=== PATIENT | female | born 1985 | race Two or more races ===

== ENCOUNTER 2017-07-09 21:08 | Emergency (ER) | payer OTHER ==
[2017-07-09] MEDS ORDERED: ACETAMINOPHEN TAB 500 MG TAB PO STA (21:34)
[2017-07-09] MEDS ORDERED: METOCLOPRAMIDE 5 MG/ML 2 ML VIAL IVP STA (21:34)
[2017-07-09] MEDS ORDERED: SODIUM CHLORIDE 0.9% 1,000 ML IV STA ×2 (21:34→23:22)
--- NOTE | 2017-07-09 21:37 | ED ---
General Adult HPI - General Chief complaint: Nausea/Vomiting/Diarrhea Stated complaint: Vomiting Time Seen by Provider: 07/09/17 21:27 Source: patient, RN notes reviewed Mode of arrival: ambulatory Limitations: no limitations - History of Present Illness Initial comments: 32-year-old female who is currently 14 weeks presents to the emergency department with a chief complaint of nausea vomiting and diarrhea. Patient has had this for the past day or so. She states that she noticed a fever when she arrived. She states there is been no blood in the vomit or diarrhea. Her daughter was sick with similar like symptoms earlier this week. There is been no cough cold symptoms. She was concerned due to the continued vomiting and diarrhea so she thought that she should be evaluated.Patient denies any recent shortness of breath, chest pain, back pain, abdominal pain, numbness or tingling , dysuria or hematuria, constipation, headaches or visual changes, or any other current symptoms. - Related Data Home Medications Medication Instructions Recorded Confirmed Calcium Carbonate [Calcium] 600 mg PO DAILY 12/02/15 01/26/16 Ferrous Sulfate [Feosol] 325 mg PO DAILY 12/02/15 01/26/16 Yty-Iqef-Xzmzc Acid 1 cap PO DAILY 12/02/15 01/26/16 [-U Capsule] Previous Rx's Medication Instructions Recorded Acetaminophen-Codeine 300-30mg 2 each PO Q4HR PRN #20 tab 02/01/16 [Tylenol w/codeine #3] Cephalexin [Keflex] 500 mg PO Q6HR #40 cap 07/09/17 Allergies Allergy/AdvReac Type Severity Reaction Status Date / Time No Known Allergies Allergy Verified 07/09/17 21:16 Review of Systems ROS Statement: Those systems with pertinent positive or pertinent negative responses have been documented in the HPI. ROS Other: All systems not noted in ROS Statement are negative. Past Medical History Past Medical History: No Reported History History of Any Multi-Drug Resistant Organisms: None Reported Past Surgical History: Cholecystectomy Past Anesthesia/Blood Transfusion Reactions: No Reported Reaction Past Psychological History: Anxiety Smoking Status: Never smoker Past Alcohol Use History: None Reported Past Drug Use History: None Reported - Past Family History Mother Family Medical History: No Reported History General Exam - General Exam Comments Initial Comments: General: The patient is awake and alert, in no distress, and does not appear acutely ill. Eye: Pupils are equal, round and reactive to light, extra-ocular movements are intact; there is normal conjunctiva bilaterally. No signs of icterus. Ears, nose, mouth and throat: There are moist mucous membranes. Neck: The neck is supple, there is no tenderness. Cardiovascular: There is a regular rate and rhythm. No murmur, rub or gallop is appreciated. Respiratory: Lungs are clear to auscultation, respirations are non-labored, breath sounds are equal. No wheezes, stridor, rales, or rhonchi. Gastrointestinal: Soft, non-distended, non-tender abdomen without masses or organomegaly noted. There is no rebound or guarding present. No CVA tenderness. Bowel sounds are unremarkable. Back: There is no tenderness to palpation in the midline. There is no obvious deformity. No rashes noted. Musculoskeletal: Normal ROM, no tenderness, There is no pedal edema. There is no calf tenderness or swelling. Sensation intact. Pulses equal bilaterally 2+. Neurological: CN II-XII intact, There are no obvious motor or sensory deficits. Coordination appears grossly intact. Speech is normal. Skin: Skin is warm and dry and no rashes or lesions are noted. Psychiatric: Cooperative, appropriate mood & affect, normal judgment. Limitations: no limitations Course Vital Signs 07/09/17 07/09/17 21:13 23:22 Temperature 100 F H 98.8 F Pulse Rate 119 H 88 Respiratory 18 18 Rate Blood Pressure 136/75 111/64 O2 Sat by Pulse 97 100 Oximetry Medical Decision Making - Medical Decision Making 32-year-old female presents for nausea vomiting and diarrhea. This time urine is evaluated that show suspicion for possible UTI. We will start her on antibiotics for home. We discussed patient also has some suspicion for a viral enteritis. The patient's daughter had similar symptoms recently as well. We did thoroughly hydrate the patient with 2 L of fluid and give her IV Rocephin for her UTI. We discussed we will start her on Keflex for home for the UTI as well. We did discuss close follow-up with her doctor we did discuss return parameters and stated that she understood and she is this plan. All questions have been answered. She will be discharged. - Lab Data Result diagrams: 07/09/17 22:00 07/09/17 22:00 Lab Results 07/09/17 07/09/17 07/09/17 Range/Units 21:45 22:00 22:00 WBC 11.9 H (3.8-10.6) k/uL RBC 5.10 (3.80-5.40) m/uL Hgb 12.3 (11.4-16.0) gm/dL Hct 38.9 (34.0-46.0) % MCV 76.2 L (80.0-100.0) fL MCH 24.1 L (25.0-35.0) pg MCHC 31.7 (31.0-37.0) g/dL RDW 17.0 H (11.5-15.5) % Plt Count 288 (150-450) k/uL Neutrophils % 85 % Lymphocytes % 9 % Monocytes % 4 % Eosinophils % 1 % Basophils % 0 % Neutrophils # 10.1 H (1.3-7.7) k/uL Lymphocytes # 1.0 (1.0-4.8) k/uL Monocytes # 0.5 (0-1.0) k/uL Eosinophils # 0.1 (0-0.7) k/uL Basophils # 0.0 (0-0.2) k/uL Hypochromasia Slight Anisocytosis Slight Microcytosis Slight Sodium 139 (137-145) mmol/L Potassium 3.8 (3.5-5.1) mmol/L Chloride 105 (98-107) mmol/L Carbon Dioxide 17 L (22-30) mmol/L Anion Gap 17 mmol/L BUN 16 (7-17) mg/dL Creatinine 0.70 (0.52-1.04) mg/dL Est GFR (MDRD) Af Amer >60 (>60 ml/min/1.73 sqM) Est GFR (MDRD) Non-Af >60 (>60 ml/min/1.73 sqM) Glucose 134 H (74-99) mg/dL Calcium 10.1 (8.4-10.2) mg/dL Total Bilirubin 0.6 (0.2-1.3) mg/dL AST 27 (14-36) U/L ALT 25 (9-52) U/L Alkaline Phosphatase 100 (38-126) U/L Total Protein 7.8 (6.3-8.2) g/dL Albumin 4.4 (3.5-5.0) g/dL Urine Color Urine Appearance (Clear) Urine pH (5.0-8.0) Ur Specific [place] (1.001-1.035) Urine Protein (Negative) Urine Glucose (UA) (Negative) Urine Ketones (Negative) Urine Blood (Negative) Urine Nitrite (Negative) Urine Bilirubin (Negative) Urine Urobilinogen (<2.0) mg/dL Ur Leukocyte Esterase (Negative) Urine RBC (0-5) /hpf Urine WBC (0-5) /hpf Ur Squamous Epith Cells (0-4) /hpf Urine Bacteria (None) /hpf Hyaline Casts (0-2) /lpf Urine Mucus (None) /hpf Influenza Type A RNA Not Detected (Not Detectd) Influenza Type B (PCR) Not Detected (Not Detectd) 07/09/17 Range/Units 22:47 WBC (3.8-10.6) k/uL RBC (3.80-5.40) m/uL Hgb (11.4-16.0) gm/dL Hct (34.0-46.0) % MCV (80.0-100.0) fL MCH (25.0-35.0) pg MCHC (31.0-37.0) g/dL RDW (11.5-15.5) % Plt Count (150-450) k/uL Neutrophils % % Lymphocytes % % Monocytes % % Eosinophils % % Basophils % % Neutrophils # (1.3-7.7) k/uL Lymphocytes # (1.0-4.8) k/uL Monocytes # (0-1.0) k/uL Eosinophils # (0-0.7) k/uL Basophils # (0-0.2) k/uL Hypochromasia Anisocytosis Microcytosis Sodium (137-145) mmol/L Potassium (3.5-5.1) mmol/L Chloride (98-107) mmol/L Carbon Dioxide (22-30) mmol/L Anion Gap mmol/L BUN (7-17) mg/dL Creatinine (0.52-1.04) mg/dL Est GFR (MDRD) Af Amer (>60 ml/min/1.73 sqM) Est GFR (MDRD) Non-Af (>60 ml/min/1.73 sqM) Glucose (74-99) mg/dL Calcium (8.4-10.2) mg/dL Total Bilirubin (0.2-1.3) mg/dL AST (14-36) U/L ALT (9-52) U/L Alkaline Phosphatase (38-126) U/L Total Protein (6.3-8.2) g/dL Albumin (3.5-5.0) g/dL Urine Color Dark Brown Urine Appearance Turbid H (Clear) Urine pH 6.0 (5.0-8.0) Ur Specific [place] 1.035 (1.001-1.035) Urine Protein 3+ H (Negative) Urine Glucose (UA) Trace H (Negative) Urine Ketones 1+ H (Negative) Urine Blood Negative (Negative) Urine Nitrite Negative (Negative) Urine Bilirubin 1+ H (Negative) Urine Urobilinogen 4.0 (<2.0) mg/dL Ur Leukocyte Esterase Trace H (Negative) Urine RBC 2 (0-5) /hpf Urine WBC 24 H (0-5) /hpf Ur Squamous Epith Cells 28 H (0-4) /hpf Urine Bacteria Occasional H (None) /hpf Hyaline Casts 474 H (0-2) /lpf Urine Mucus Many H (None) /hpf Influenza Type A RNA (Not Detectd) Influenza Type B (PCR) (Not Detectd) Disposition Clinical Impression: Nausea & vomiting, Diarrhea, UTI (urinary tract infection), Dehydration Disposition: HOME SELF-CARE Condition: Stable Instructions: Acute Nausea and Vomiting (ED), Urinary Tract Infection in Women (ED) Additional Instructions: Please use medication as discussed. Please follow up with family doctor if symptoms have not improved over the next two days. Please return to the emergency room if your symptoms increase or worsen or for any other concerns. Prescriptions: Cephalexin [Keflex] 500 mg PO Q6HR #40 cap Referrals: Codi Jackson MD [Primary Care Provider] - 1-2 days
[2017-07-09 22:07] LABS: Anisocytosis Slight; Basophils % (A) 0 %; Eosinophils # (A) 0.1 k/uL (0-0.7); Eosinophils % (A) 1 %; HCT 38.9 % (34.0-46.0); HGB 12.3 gm/dL (11.4-16.0); Hypochromasia Slight; Lymphocytes % (A) 9 %; MCH 24.1 pg (25.0-35.0); MCHC 31.7 g/dL (31.0-37.0); MCV 76.2 fL (80.0-100.0); Mean Platelet Volume 7.4; Microcytosis Slight; Monocytes # (A) 0.5 k/uL (0-1.0); Monocytes % (A) 4 %; Neutrophils # (A) 10.1 k/uL (1.3-7.7); Neutrophils % (A) 85 %; Platelet Count 288 k/uL (150-450); WBC 11.9 k/uL (3.8-10.6)
[2017-07-09 22:18] LABS: ALT 25 U/L (9-52); AST 27 U/L (14-36); Albumin 4.4 g/dL (3.5-5.0); Alkaline Phosphatase 100 U/L (38-126); Anion Gap 17 mmol/L; Blood Urea Nitrogen 16 mg/dL (7-17); Calcium 10.1 mg/dL (8.4-10.2); Carbon Dioxide 17 mmol/L (22-30); Chloride 105 mmol/L (98-107); Glucose 134 mg/dL (74-99); Potassium 3.8 mmol/L (3.5-5.1); Sodium 139 mmol/L (137-145); Total Bilirubin 0.6 mg/dL (0.2-1.3); Total Protein 7.8 g/dL (6.3-8.2)
[2017-07-09 23:14] LABS: Appearance,Urine Turbid (Clear); Bacteria,Urine Occasional /hpf; Bilirubin,Urine 1+ (Negative); Blood,Urine Negative (Negative); Color,Urine Dark Brown; Glucose,Urine (UA) Trace (Negative); Hyaline Casts,Urine 474 /lpf (0-2); Ketones,Urine 1+ (Negative); Leukocyte Esterase,Urine Trace (Negative); Mucus,Urine Many /hpf; Nitrite,Urine Negative (Negative); Protein,Urine 3+ (Negative); RBC,Urine 2 /hpf (0-5); Specific Gravity,Urine 1.035 (1.001-1.035); Squamous Epithelial Cell,Urine 28 /hpf (0-4); WBC,Urine 24 /hpf (0-5)
[2017-07-09] MEDS ORDERED: cefTRIAXone IN SWFI 1,000 MG/10 ML SYRINGE IVP STA (23:29)
[2017-07-10 00:11] VITALS: BP 107/64
[2017-07-10 01:14] VITALS: PULSE 98; RESP 18; TEMP 98.1
== END 2017-07-10 01:14 | disposition home or self-care (01) ==
LOC: EC 21:08
DX: O23.41 Unspecified infection of urinary tract in pregnancy, first trimester (principal); O21.9 Vomiting of pregnancy, unspecified; O99.89 Other specified diseases and conditions complicating pregnancy, childbirth and the puerperium; E86.0 Dehydration; O26.891 Other specified pregnancy related conditions, first trimester; R19.7 Diarrhea, unspecified; Z79.899 Other long term (current) drug therapy; Z3A.14 14 weeks gestation of pregnancy
CPT/HCPCS: 99284 ×2; 96374 ×2; 96375 ×2; 96361 ×4; 36415 ×2; 80053; 85025; 81001; 87040; 87086; 87502; J2765; J0696

== ENCOUNTER 2017-12-28 06:03 | Inpatient (IN) | payer OTHER ==
[2017-12-28 06:19] LABS: Glucose,Whole Blood 103 mg/dL (75-99)
[2017-12-28] MEDS ORDERED: LIDOCAINE 1% (PF) 10 MG/ML (30 ML SDV) SQ PRN (06:19)
[2017-12-28] MEDS ORDERED: OXYTOCIN 10 UNIT/ML 1 ML VIAL IM PRN (06:19)
[2017-12-28] MEDS ORDERED: METHYLERGONOVINE 0.2 MG/ML 1 ML AMP IM PRN (06:19)
[2017-12-28] MEDS ORDERED: TERBUTALINE 1 MG/ML VIAL SQ PRN (06:19)
[2017-12-28] MEDS ORDERED: CARBOPROST TROMETHAMINE 250 MCG/ML 1 ML AMP IM PRN (06:19)
[2017-12-28 06:26] VITALS: BMI 36.1
[2017-12-28] MEDS: LACTATED RINGERS 1,000 ML IV SCH ×3 (06:26→16:27)
[2017-12-28 06:32] LABS: Anisocytosis Slight; Basophils # (A) 0.1 k/uL (0-0.2); Basophils % (A) 0 %; Eosinophils # (A) 0.1 k/uL (0-0.7); Eosinophils % (A) 1 %; HCT 28.7 % (34.0-46.0); HGB 8.7 gm/dL (11.4-16.0); Hypochromasia Marked; Lymphocytes # (A) 2.2 k/uL (1.0-4.8); Lymphocytes % (A) 16 %; MCH 22.5 pg (25.0-35.0); MCHC 30.5 g/dL (31.0-37.0); MCV 73.9 fL (80.0-100.0); Mean Platelet Volume 7.1; Microcytosis Slight; Monocytes # (A) 0.7 k/uL (0-1.0); Monocytes % (A) 5 %; Neutrophils # (A) 10.6 k/uL (1.3-7.7); Neutrophils % (A) 76 %; Platelet Count 319 k/uL (150-450); Poikilocytosis Slight; RBC 3.88 m/uL (3.80-5.40); RDW 16.4 % (11.5-15.5)
[2017-12-28] MEDS: OXYTOCIN 20 UNITS/1000 ML NS 1,000 ML IV SCH ×2 (07:13→17:20)
[2017-12-28] MEDS ORDERED: BUTORPHANOL 1 MG/ML 1 ML VIAL IV PRN (08:33)
--- NOTE | 2017-12-28 08:33 | P.HPOB ---
History of Present Illness H&P Date: 12/28/17 Chief Complaint: IUP at 39-0/7 weeks This is a 32-year-old 2 para 1 at 39-0/7 weeks with an estimated due date of 725. Patient presents for elective induction of labor. Patient states she has been having irregular contractions for many weeks now but denies any change in discomfort level. She denies vaginal bleeding loss of fluid and notes good movement. On blood work showed a blood type of O+, rubella immune, hepatitis B surface antigen negative, HIV negative, RPR nonreactive, GBS negative. Review of Systems Constitutional: Reports fatigue, Denies chills, Denies fever Ears, nose, mouth and throat: Denies headache Cardiovascular: Reports edema Respiratory: Denies dyspnea Gastrointestinal: Denies constipation, Denies diarrhea Genitourinary: Reports Past Medical History Past Medical History: No Reported History History of Any Multi-Drug Resistant Organisms: None Reported Past Surgical History: Appendectomy, Cholecystectomy Past Anesthesia/Blood Transfusion Reactions: No Reported Reaction Past Psychological History: No Psychological Hx Reported Smoking Status: Never smoker Past Alcohol Use History: None Reported Past Drug Use History: None Reported - Past Family History Mother Family Medical History: No Reported History Medications and Allergies Home Medications Medication Instructions Recorded Confirmed Type Iyg-Cumn-Lkwcw Acid 1 cap PO DAILY 12/02/15 12/28/17 History [-U Capsule] Allergies Allergy/AdvReac Type Severity Reaction Status Date / Time No Known Allergies Allergy Verified 12/28/17 06:18 Exam Osteopathic Statement: *. No significant issues noted on an osteopathic structural exam other than those noted in the History and Physical/Consult. Vital Signs Temp Pulse Resp BP Pulse Ox 12/28/17 06:09 97.1 F L 103 H 18 125/71 97 Intake and Output 12/27/17 12/28/17 12/28/17 22:59 06:59 14:59 Other: Weight 83.915 kg - OBG Physical Exam Abdomen: Gravid Cervix: 3-4/60/-2 amniotomy performed with clear fluid obtained Uterus: enlarged Results Result Diagrams: 12/28/17 06:10 Abnormal Lab Results - Last 24 Hours (Table) 12/28/17 12/28/17 Range/Units 06:10 06:13 WBC 14.0 H (3.8-10.6) k/uL Hgb 8.7 L (11.4-16.0) gm/dL Hct 28.7 L (34.0-46.0) % MCV 73.9 L (80.0-100.0) fL MCH 22.5 L (25.0-35.0) pg MCHC 30.5 L (31.0-37.0) g/dL RDW 16.4 H (11.5-15.5) % Neutrophils # 10.6 H (1.3-7.7) k/uL POC Glucose (mg/dL) 103 H (75-99) mg/dL Assessment and Plan (1) Term Current Visit: Yes Status: Acute Code(s): Z34.80 - ENCOUNTER FOR SUPRVSN OF NORMAL , UNSP TRIMESTER SNOMED Code(s): 08348997 Plan: We'll plan Pitocin induction of labor, patient does desire epidural when a appropriate, anticipate spontaneous vaginal delivery later today.
[2017-12-28] MEDS: PRENATAL VIT-IRON-FOLIC ACID 1 EACH CAP PO SCH (11:05)
[2017-12-28] MEDS ORDERED: ROPIVACAINE 100 MG, fentaNYL (PF) 200 MCG in SODIUM CHLORIDE 0.9% 76 ML EPIDURAL ONE (12:44)
[2017-12-28] MEDS ORDERED: ZOLPIDEM 5 MG TAB PO PRN (14:33)
[2017-12-28] MEDS ORDERED: WITCH HAZEL 1 EACH MED..PAD TOPICAL PRN (14:33)
[2017-12-28] MEDS ORDERED: ACETAMINOPHEN TAB 325 MG TAB PO PRN (14:33)
[2017-12-28] MEDS ORDERED: HYDROCORTISONE 2.5% RECTAL CREAM 30 GM TUBE RECTAL PRN (14:33)
[2017-12-28] MEDS ORDERED: diphenhydrAMINE 50 MG/ML 1 ML VIAL IVP PRN ×2 (14:33)
[2017-12-28] MEDS ORDERED: SIMETHICONE 80 MG CHEWABLE PO PRN (14:33)
[2017-12-28] MEDS ORDERED: LANOLIN CREAM 5 GM TUBE TOPICAL PRN (14:33)
[2017-12-28] MEDS ORDERED: diphenhydrAMINE 25 MG CAP PO PRN (14:33)
[2017-12-28] MEDS ORDERED: diphenhydrAMINE 50 MG CAP PO PRN (14:33)
[2017-12-28] MEDS ORDERED: IBUPROFEN 600 MG TAB PO PRN (14:33)
[2017-12-28] MEDS ORDERED: BENZOCAINE/MENTHOL SPRAY 1 GM/SPRAY AEROSOL TOPICAL PRN (14:33)
--- NOTE | 2017-12-28 14:33 | P.PROBDLV ---
Vaginal Delivery Note - . Vaginal Delivery Note: This is a very pleasant 32-year-old 2 para 1 at 39-0/7 weeks that presented to labor and delivery for elective induction of labor. Pitocin induction was begun amniotomy was performed yielding clear fluid. Patient progressed through labor eventually getting epidural. She progressed to complete began pushing and had a normal spontaneous vaginal delivery of a viable female at 1415, weight of 6 lbs. 9 oz., Apgars of 9 and 9 at one and 5 minutes respectively. was in a left occiput anterior presentation with a loose nuchal cord that was reduced on the perineum. Afterwards the cord was doubly clamped and cut and the placenta was delivered spontaneously intact. The vaginal vault was then inspected in a first-degree vaginal laceration was noted along with a periurethral tear. Both were bleeding therefore repaired in the usual fashion with 3-0 repeat. Afterwards the vaginal vault was once again inspected and hemostasis was appreciated. Estimated blood loss approximately 300 mL next Patient and infant tolerated delivery well and are resting comfortably
[2017-12-28] MEDS ORDERED: OXYTOCIN 20 UNITS/1000 ML NS 1,000 ML IV SCH (14:45)
[2017-12-28] MEDS: SENNOSIDES-DOCUSATE SODIUM 1 EACH TAB PO SCH (21:27)
[2017-12-29 01:01] VITALS: RESP 16
--- NOTE | 2017-12-29 08:33 | P.DS ---
Providers Date of admission: 12/28/17 06:03 Expected date of discharge: 12/29/17 Attending physician: Yue Pruitt Primary care physician: Stated None - Discharge Diagnosis(es) (1) Term Current Visit: Yes Status: Acute (2) Normal spontaneous vaginal delivery Current Visit: No Status: Acute Hospital Course: This is a very pleasant 32-year-old 2 para 1001 at 39-0/7 weeks that presented yesterday 718 for elective induction of labor. Pitocin induction was begun amniotomy was performed eventually epidural was placed by anesthesia patient progressed to complete and had a normal spontaneous vaginal delivery of a viable female infant at 1415, weight of 6 lbs. 9 oz., Apgars of 9 and 9 at one and 5 minutes respectively. Patient is doing well . She is ambulating and voiding without difficulty. She is tolerating a regular diet without nausea or vomiting. She states her lochia is moderate. She is breast- feeding with some difficulty. She does wish to be discharged home on this day #1. Plan - Discharge Summary New Discharge Prescriptions: No Action Jhc-Kwow-Jnhbb Acid [-U Capsule] 1 cap PO DAILY Discharge Medication List Mbx-Lglw-Lksul Acid [-U Capsule] 1 cap PO DAILY 12/02/15 [ History] Follow up Appointment(s)/Referral(s): Yue Pruitt DO [Doctor of Osteopathic Medicine] - 4 Weeks Patient Instructions/Handouts: Vaginal Delivery (DC), Vaginal Delivery (GEN) Care Plan Goals (MU): No tub baths or intercourse until 6 weeks Discharge Disposition: HOME SELF-CARE
[2017-12-29] MEDS: PRENATAL VIT-IRON-FOLIC ACID 1 EACH CAP PO SCH (10:04)
[2017-12-29] MEDS: SENNOSIDES-DOCUSATE SODIUM 1 EACH TAB PO SCH (10:04)
[2017-12-29 17:28] VITALS: BP 110/62; PULSE 84; TEMP 98
== END 2017-12-29 17:00 | disposition home or self-care (01) | DRG 775 ==
LOC: 4FBP 06:03
PROVIDERS: ADMIT Obstetrics & Gynecology Obstetrics; ATTEND Obstetrics & Gynecology Obstetrics
PROC: 10E0XZZ Delivery of Products of Conception, External Approach (ICD-10-PCS; principal; 2017-12-28)
PROC: 0UQMXZZ Repair Vulva, External Approach (ICD-10-PCS; 2017-12-28)
PROC: 0HQ9XZZ Repair Perineum Skin, External Approach (ICD-10-PCS; 2017-12-28)
PROC: 3E033VJ Introduction of Other Hormone into Peripheral Vein, Percutaneous Approach (ICD-10-PCS; 2017-12-28)
PROC: 10907ZC Drainage of Amniotic Fluid, Therapeutic from Products of Conception, Via Natural or Artificial Opening (ICD-10-PCS; 2017-12-28)
PROC: 00HU33Z Insertion of Infusion Device into Spinal Canal, Percutaneous Approach (ICD-10-PCS; 2017-12-28)
PROC: 3E0R3BZ Introduction of Anesthetic Agent into Spinal Canal, Percutaneous Approach (ICD-10-PCS; 2017-12-28)
DX: O69.81X0 Labor and delivery complicated by cord around neck, without compression, not applicable or unspecified (principal); O70.0 First degree perineal laceration during delivery; O71.82 Other specified trauma to perineum and vulva; Z3A.39 39 weeks gestation of pregnancy; Z37.0 Single live birth; Z79.899 Other long term (current) drug therapy; Z90.49 Acquired absence of other specified parts of digestive tract
CPT/HCPCS: 85025

== ENCOUNTER 2020-05-01 19:25 | Outpatient (CLI) | payer OTHER ==
[2020-05-01 22:36] VITALS: BP 115/74; PULSE 113; RESP 16; TEMP 96.7
--- NOTE | 2020-05-02 06:01 | P.MSEPDOC ---
Presenting Problems - Arrival Data Date of Arrival on Unit: 05/01/20 Time of Arrival on Unit: 19:25 Mode of Transport: Wheelchair - Complaint OB-Reason for Admission/Chief Complaint: Rule Out SROM Medical History - Information : 3 Para: 2 Term: 2 : 0 Abortions: Spontaneous or Elective: 0 Number of Living Children: 2 - Gestational Age Gestational Age by MACHO (wks/days): 38 Weeks and 6 Days Review of Systems - Review of Systems Constitutional: No problems Breast: No problems ENT: No problems Cardiovascular: No problems Respiratory: No problems Gastrointestinal: No problems Genitourinary: No problems Musculoskeletal: No problems Neurological: No problems Skin: No problems Vital Signs - Temperature Temperature: 96.7 F Temperature Source: Temporal Artery Scan - Pulse Right Brachial Pulse Rate: 113 Pulse Assessment Method: Automatic Cuff - Respirations Respiratory Rate: 16 Oxygen Delivery Method: Room Air O2 Sat by Pulse Oximetry: 99 - Blood Pressure Right Arm Blood Pressure: 115/74 Blood Pressure Mean: 87 Blood Pressure Source: Automatic Cuff Medical Screen Scoring (Pre) - Cervical Exam Dilation: 1-3 cm = 1 Membranes: Intact - Uterine Contractions Frequency: > 5 minutes apart = 1 Duration: N/A Intensity: N/A - Maternal Vital Signs Maternal Temperature: N/A Maternal Blood Pressure: N/A Signs of Preeclampsia: N/A Maternal Respirations: N/A - Maternal Trauma Maternal Trauma: N/A - Assessment - Baby A Baseline FHR: 125 Heart Rate - NICHD Category: Category I (Normal) = 0 NST: Reactive Position: N/A Station: N/A - Total Score - Baby A Total Score - Baby A: 2 - Total Score - Baby B Total Score - Baby B: 2 - Total Score - Baby C Total Score - Baby C: 2 - Level of Risk - Baby A Level of Risk - Baby A: Low (0-5) - Level of Risk - Baby B Level of Risk - Baby B: Low (0-5) - Level of Risk - Baby C Level of Risk - Baby C: Low (0-5) Physician Notification (Pre) - Physician Notified Physician Notified Date: 05/01/20 Physician Notified Time: 21:00 New Order Received: Yes - Notification Comment Comment: Dr. Dickerson given report on pt. Pt c/o. Amnisure negative. Vag exam of /-2 with no change after 1 hr. Reactive NST. Contractions q4-7 minutes. Pt sched for IOL 05/05. Orders recieved to d/c pt to home. Disposition - Disposition OB Disposition: Discharge to home Discharge Date: 05/01/20 Discharge Time: 21:05 I agree with the RN Medical Screening Exam: Yes Risk & Benefit of care provided described in d/c instruction: Yes Diagnosis: FALSE LABOR AT OR AFTER 37 COMPLETED WEEKS OF GESTATION
== END 2020-05-01 21:10 | disposition home or self-care (01) ==
LOC: FBPOP 19:25
PROVIDERS: ATTEND Obstetrics & Gynecology
DX: O47.1 False labor at or after 37 completed weeks of gestation (principal); Z3A.38 38 weeks gestation of pregnancy
CPT/HCPCS: 59025; G0463; 99213

== ENCOUNTER 2020-05-05 05:55 | Inpatient (IN) | payer OTHER ==
[2020-05-05] MEDS ORDERED: TERBUTALINE 1 MG/ML VIAL SQ PRN (06:11)
[2020-05-05] MEDS ORDERED: CARBOPROST TROMETHAMINE 250 MCG/ML 1 ML AMP IM PRN (06:11)
[2020-05-05] MEDS ORDERED: OXYTOCIN 10 UNIT/ML 1 ML VIAL IM PRN (06:11)
[2020-05-05] MEDS ORDERED: METHYLERGONOVINE 0.2 MG/ML 1 ML AMP IM PRN (06:11)
[2020-05-05] MEDS ORDERED: LIDOCAINE 0.5% (PF) 5 MG/ML (50 ML SDV) SQ PRN (06:11)
[2020-05-05] MEDS ORDERED: LACTATED RINGERS 1,000 ML IV SCH (06:15)
[2020-05-05] MEDS ORDERED: OXYTOCIN 30 UNITS/500 ML NS 30 UNIT in SALINE 1 500ML.BAG IV SCH (06:30)
[2020-05-05 07:06] LABS: Basophils # (A) 0.1 k/uL (0-0.2); Basophils % (A) 0 %; Eosinophils # (A) 0.1 k/uL (0-0.7); Eosinophils % (A) 1 %; HCT 29.7 % (34.0-46.0); HGB 9.5 gm/dL (11.4-16.0); Hypochromasia Moderate; Lymphocytes # (A) 2.1 k/uL (1.0-4.8); Lymphocytes % (A) 19 %; MCHC 31.9 g/dL (31.0-37.0); Mean Platelet Volume 7.6; Microcytosis Slight; Monocytes # (A) 0.5 k/uL (0-1.0); Monocytes % (A) 4 %; Neutrophils # (A) 8.2 k/uL (1.3-7.7); Neutrophils % (A) 75 %; Platelet Count 250 k/uL (150-450); Poikilocytosis Slight; RBC 3.96 m/uL (3.80-5.40); RDW 15.9 % (11.5-15.5)
[2020-05-05] MEDS ORDERED: IBUPROFEN 600 MG TAB PO PRN (11:10)
[2020-05-05] MEDS ORDERED: SIMETHICONE 80 MG CHEWABLE PO PRN (11:10)
[2020-05-05] MEDS ORDERED: LANOLIN CREAM 5 GM TUBE TOPICAL PRN (11:10)
[2020-05-05] MEDS ORDERED: diphenhydrAMINE 50 MG CAP PO PRN (11:10)
[2020-05-05] MEDS ORDERED: ZOLPIDEM 5 MG TAB PO PRN (11:10)
[2020-05-05] MEDS ORDERED: diphenhydrAMINE 50 MG/ML 1 ML VIAL IVP PRN ×2 (11:10)
[2020-05-05] MEDS ORDERED: HYDROCORTISONE 2.5% RECTAL CREAM 30 GM TUBE RECTAL PRN (11:10)
[2020-05-05] MEDS ORDERED: BENZOCAINE/MENTHOL SPRAY 1 GM/SPRAY AEROSOL TOPICAL PRN (11:10)
[2020-05-05] MEDS ORDERED: diphenhydrAMINE 25 MG CAP PO PRN (11:10)
[2020-05-05] MEDS ORDERED: ACETAMINOPHEN TAB 325 MG TAB PO PRN (11:10)
[2020-05-05] MEDS ORDERED: OXYTOCIN 20 UNITS/1000 ML NS 1,000 ML IV SCH (11:15)
--- NOTE | 2020-05-05 13:01 | P.HPOB ---
History of Present Illness H&P Date: 05/05/20 Chief Complaint: Induction of labor 35-year-old presents at 39 weeks and 3 days for induction of labor. Her cervix is 3 cm dilated, 80% effaced, and -2 station. She is javi irregularly. heart tones 135 with moderate variability and reactive. Review of Systems All systems: negative Constitutional: Denies chills, Denies fever Eyes: denies blurred vision, denies pain Ears, nose, mouth and throat: Denies headache, Denies sore throat Cardiovascular: Denies chest pain, Denies shortness of breath Respiratory: Denies cough Gastrointestinal: Denies abdominal pain, Denies diarrhea, Denies nausea, Denies vomiting Genitourinary: Denies dysuria, Denies hematuria Musculoskeletal: Denies myalgias Integumentary: Denies pruritus, Denies rash Neurological: Denies numbness, Denies weakness Psychiatric: Denies anxiety, Denies depression Endocrine: Denies fatigue, Denies weight change Past Medical History Past Medical History: No Reported History Additional Past Medical History / Comment(s): Anemia. Obstetric history: She's had 2 previous vaginal deliveries. Her blood type is O+, abs negative, rubella immune, hepatitis B-, RPR nonreactive, GBS negative. History of Any Multi-Drug Resistant Organisms: None Reported Past Surgical History: Appendectomy, Cholecystectomy Past Anesthesia/Blood Transfusion Reactions: No Reported Reaction Past Psychological History: No Psychological Hx Reported Smoking Status: Never smoker Past Alcohol Use History: None Reported Past Drug Use History: None Reported - Past Family History Mother Family Medical History: No Reported History Medications and Allergies Home Medications Medication Instructions Recorded Confirmed Type Cll-Mjzk-Fqizj Acid 1 cap PO DAILY 12/02/15 05/05/20 History [-U Capsule] Allergies Allergy/AdvReac Type Severity Reaction Status Date / Time No Known Allergies Allergy Verified 05/05/20 06:10 Exam Osteopathic Statement: *. No significant issues noted on an osteopathic structural exam other than those noted in the History and Physical/Consult. Vital Signs Temp Pulse Resp BP 05/05/20 12:15 98.3 F 67 16 110/69 05/05/20 11:45 72 16 116/64 05/05/20 11:00 76 16 117/58 05/05/20 10:45 81 16 102/55 05/05/20 10:30 83 16 125/65 05/05/20 10:15 97.7 F 85 18 118/71 05/05/20 06:14 96.5 F L 120 H 18 131/80 Intake and Output 05/04/20 05/05/20 05/05/20 22:59 06:59 14:59 Other: Weight 88.904 kg Heart: Regular rate and rhythm Lungs: Clear to auscultation bilaterally Abdomen: Soft, nontender Extremities: Negative Homans sign Results Result Diagrams: 05/05/20 06:43 Abnormal Lab Results - Last 24 Hours (Table) 05/05/20 Range/Units 06:43 WBC 11.0 H (3.8-10.6) k/uL Hgb 9.5 L (11.4-16.0) gm/dL Hct 29.7 L (34.0-46.0) % MCV 75.0 L (80.0-100.0) fL MCH 24.0 L (25.0-35.0) pg RDW 15.9 H (11.5-15.5) % Neutrophils # 8.2 H (1.3-7.7) k/uL Assessment and Plan (1) Normal labor Current Visit: Yes Status: Acute Code(s): O80 - ENCOUNTER FOR FULL-TERM UNCOMPLICATED DELIVERY; Z37.9 - OUTCOME OF DELIVERY, UNSPECIFIED SNOMED Code(s): 50848386 Plan: 1. Amniotomy Pitocin for induction of labor. 2. Anticipate normal vaginal delivery
--- NOTE | 2020-05-05 13:02 | P.PROBDLV ---
Vaginal Delivery Note - . Vaginal Delivery Note: 35-year-old presents at 39 weeks and 3 days for induction of labor. Her cervix is 3 cm dilated, 80% effaced, and -2 station. She is javi irregularly. heart tones 135 with moderate variability and reactive. Amniotomy performed at 7:13 AM and clear fluid noted. Pitocin had been started. She progressed quickly and was completely dilated by 9:15. She pushed, delivered a viable female over intact perineum at 10:03 AM. Head delivered LOP, nuchal cord 1 easily reduced, anterior shoulder delivered gentle downward guidance of by posterior shoulder and rest of body. Nose and mouth bulb suctioned, cord clamped and cut, infant placed mother's abdomen. Apgars 9, 9, weight 6 lbs. 14 oz. Placenta delivered spontaneously, intact with three- vessel cord at 10:05 AM. Vagina, cervix, perineum inspected. First-degree left lateral laceration was repaired with 3-0 Vicryl. Estimated blood loss 100 mL. Mother and baby in stable condition.
[2020-05-05] MEDS: SENNOSIDES-DOCUSATE SODIUM 1 EACH TAB PO SCH (19:44)
--- NOTE | 2020-05-06 07:23 | P.DS ---
Providers Date of admission: 05/05/20 05:55 Expected date of discharge: 05/06/20 Attending physician: Tanna Franco Primary care physician: Stated None - Discharge Diagnosis(es) (1) Normal labor Current Visit: Yes Status: Resolved (2) Normal spontaneous vaginal delivery Current Visit: No Status: Acute Hospital Course: Pt presented for induction of labor. She underwent a normal vaginal delivery. PP course was uncomplicated. She denies N/V, F/C, CP, SOB or calf pain. She will be discharged home PPD #1 in stable condition to follow up with me in 6 weeks. Plan - Discharge Summary New Discharge Prescriptions: New Ibuprofen [Motrin] 600 mg PO Q6HR PRN #30 tab PRN Reason: Mild Pain Or Fever >= 100.5 No Action Lqm-Jpnj-Qwmtx Acid [-U Capsule] 1 cap PO DAILY Discharge Medication List Heo-Drmt-Tlcid Acid [-U Capsule] 1 cap PO DAILY 12/02/15 [History] Ibuprofen [Motrin] 600 mg PO Q6HR PRN #30 tab 05/06/20 [Rx] Follow up Appointment(s)/Referral(s): Tanna Franco DO [Doctor of Osteopathic Medicine] - 6 Weeks Discharge Disposition: HOME SELF-CARE
[2020-05-06] MEDS: SENNOSIDES-DOCUSATE SODIUM 1 EACH TAB PO SCH (08:03)
[2020-05-06 08:08] LABS: Basophils % (A) 0 %; Eosinophils # (A) 0.1 k/uL (0-0.7); Eosinophils % (A) 0 %; HCT 27.6 % (34.0-46.0); HGB 8.7 gm/dL (11.4-16.0); Hypochromasia Moderate; Lymphocytes % (A) 15 %; MCHC 31.7 g/dL (31.0-37.0); MCV 75.7 fL (80.0-100.0); Mean Platelet Volume 7.8; Microcytosis Slight; Monocytes # (A) 0.6 k/uL (0-1.0); Monocytes % (A) 5 %; Neutrophils # (A) 10.1 k/uL (1.3-7.7); Neutrophils % (A) 78 %; Platelet Count 241 k/uL (150-450); Poikilocytosis Slight; RBC 3.64 m/uL (3.80-5.40); WBC 12.9 k/uL (3.8-10.6)
[2020-05-06 08:24] VITALS: BP 109/70; PULSE 73; RESP 18; TEMP 98.2
== END 2020-05-06 11:30 | disposition home or self-care (01) | DRG 807 ==
LOC: 4FBP 05:55
PROVIDERS: ADMIT Obstetrics & Gynecology; ATTEND Obstetrics & Gynecology
DX: O69.81X0 Labor and delivery complicated by cord around neck, without compression, not applicable or unspecified (principal); Z37.0 Single live birth; O70.0 First degree perineal laceration during delivery; Z3A.39 39 weeks gestation of pregnancy; Z79.899 Other long term (current) drug therapy; Z90.49 Acquired absence of other specified parts of digestive tract; Z87.19 Personal history of other diseases of the digestive system; Z98.890 Other specified postprocedural states; Z86.2 Personal history of diseases of the blood and blood-forming organs and certain disorders involving the immune mechanism
CPT/HCPCS: 85025; 86850; 86900; 86901

== ENCOUNTER → 2021-10-26 | Outpatient (CLI) | payer OTHER ==
--- NOTE | 2021-10-26 13:35 | US ---
EXAMINATION TYPE: Transabdominal DATE OF EXAM: 10/26/2021 12:53 PM COMPARISON: NONE CLINICAL HISTORY: Z36.89 CONFIRM GESTATIONAL AGE AND VIABILITY. Patient states some spotting since . Positive beta-hCG test. EXAM PERFORMED: Transabdominal (TA) EXAM MEASUREMENTS: GESTATIONAL AGE / DATING Physician Established: Not yet established Dates by LMP: (12 weeks/4 days) EDC: 05/06/2022 Dates by First Scan: No previous this is first scan Dates by Current Scan for: (13 weeks/1 days) EDC: 05/02/2022 MATERNAL ANATOMY Uterus: 13.6 x 9.9 x 7.4 cm Right Ovary: 3.1 x 2.1 x 1.3 cm Left Ovary: 2.6 x 1.5 x 1.4 cm Post CDS / Adnexa: no free fluid Presence of free fluid: no Presence of corpus luteal cyst: no Presence of subchorionic bleed: 1.7 x 1.9 x 1.0 cm GESTATION / SURVEY CRL: 7.0 cm (13 weeks/1 days) MSD: seen, not measured Yolk Sac (normal less than 6mm): not seen Heart Rate: 157 bpm Rhythm: Normal IUP: Viable IUP Date of LMP: 07/30/2021, Beta HcG (if available): Not available at this time Single live IUP measuring 13 weeks 1 day. Single live intrauterine gestation is confirmed as gestational sac and pole seen. No yolk sac i dentified. Posterior to the gestational sac there is small to tiny 1.9 x 1.7 x 1.0 cm slightly hypoec hoic area could reflect small subchorionic hemorrhage or deep submucosal fibroid. There is anterior s ubserosal fibroid with lobulated contour seen on transabdominal investigation measuring near 2.5 cm. No free fluid in pelvic cul-de-sac. Both ovaries are seen. No suspicious extraovarian adnexal mass. IMPRESSION: Confirmation of single live intrauterine gestation. Mean crown-rump length 7.0 cm corresp onding to 13 week 1 day old fetus
== END | disposition home or self-care (01) ==
LOC: RADUSWWP 12:21
PROVIDERS: ATTEND Obstetrics & Gynecology
DX: Z36.89 Encounter for other specified antenatal screening (principal); Z3A.13 13 weeks gestation of pregnancy
CPT/HCPCS: 76801

== ENCOUNTER 2022-04-26 17:38 | Inpatient (IN) | payer OTHER ==
[2022-04-26] MEDS ORDERED: LIDOCAINE 0.5% (PF) 5 MG/ML (50 ML SDV) SQ PRN (17:56)
[2022-04-26] MEDS ORDERED: TERBUTALINE 1 MG/ML VIAL SQ PRN (17:56)
[2022-04-26] MEDS ORDERED: OXYTOCIN 30 UNITS/500 ML NS 30 UNIT in SALINE 1 500ML.BAG IV SCH ×2 (18:00→19:45)
[2022-04-26] MEDS: LACTATED RINGERS 1,000 ML IV SCH (18:33)
[2022-04-26 18:42] LABS: Basophils % (A) 0 %; Eosinophils # (A) 0.1 k/uL (0-0.7); Eosinophils % (A) 0 %; HGB 10.9 gm/dL (11.4-16.0); Hypochromasia Marked; Lymphocytes # (A) 2.3 k/uL (1.0-4.8); Lymphocytes % (A) 17 %; MCH 24.6 pg (25.0-35.0); MCHC 31.1 g/dL (31.0-37.0); MCV 79.1 fL (80.0-100.0); Monocytes # (A) 0.5 k/uL (0-1.0); Monocytes % (A) 4 %; Neutrophils # (A) 10.1 k/uL (1.3-7.7); Neutrophils % (A) 75 %; Platelet Count 259 k/uL (150-450); Poikilocytosis Slight; RBC 4.42 m/uL (3.80-5.40); RDW 15.9 % (11.5-15.5); WBC 13.5 k/uL (3.8-10.6)
[2022-04-26 19:05] LABS: Glucose,Whole Blood 99 mg/dL (70-110)
[2022-04-26] MEDS ORDERED: SIMETHICONE 80 MG CHEWABLE PO PRN (19:36)
[2022-04-26] MEDS ORDERED: diphenhydrAMINE 50 MG/ML 1 ML VIAL IVP PRN ×2 (19:36)
[2022-04-26] MEDS ORDERED: ACETAMINOPHEN TAB 325 MG TAB PO PRN (19:36)
[2022-04-26] MEDS ORDERED: diphenhydrAMINE 50 MG CAP PO PRN (19:36)
[2022-04-26] MEDS ORDERED: ZOLPIDEM 5 MG TAB PO PRN (19:36)
[2022-04-26] MEDS ORDERED: HYDROCORTISONE 2.5% RECTAL CREAM 30 GM TUBE RECTAL PRN (19:36)
[2022-04-26] MEDS ORDERED: LANOLIN CREAM 5 GM TUBE TOPICAL PRN (19:36)
[2022-04-26] MEDS ORDERED: BENZOCAINE/MENTHOL SPRAY 1 GM/SPRAY AEROSOL TOPICAL PRN (19:36)
[2022-04-26] MEDS ORDERED: IBUPROFEN 600 MG TAB PO PRN (19:36)
[2022-04-26] MEDS ORDERED: diphenhydrAMINE 25 MG CAP PO PRN (19:36)
--- NOTE | 2022-04-26 19:40 | P.HPOB ---
History of Present Illness H&P Date: 04/26/22 Chief Complaint: Labor 37 year old presents at 38 weeks 5 days in labor. Her cervix is 8/90/-2. She is javi every 2-5 minutes. heart tones 135 with moderate variability and reactive. Review of Systems All systems: negative Constitutional: Denies chills, Denies fever Eyes: denies blurred vision, denies pain Ears, nose, mouth and throat: Denies headache, Denies sore throat Cardiovascular: Denies chest pain, Denies shortness of breath Respiratory: Denies cough Gastrointestinal: Denies abdominal pain, Denies diarrhea, Denies nausea, Denies vomiting Genitourinary: Denies dysuria, Denies hematuria Musculoskeletal: Denies myalgias Integumentary: Denies pruritus, Denies rash Neurological: Denies numbness, Denies weakness Psychiatric: Denies anxiety, Denies depression Endocrine: Denies fatigue, Denies weight change Past Medical History Past Medical History: No Reported History Additional Past Medical History / Comment(s): Obstetric history: She's had 3 previous vaginal deliveries. Her blood type is O+, abs negative, rubella immune, hepatitis B-, RPR nonreactive, GBS negative. History of Any Multi-Drug Resistant Organisms: None Reported Past Surgical History: Appendectomy, Cholecystectomy Past Anesthesia/Blood Transfusion Reactions: No Reported Reaction Past Psychological History: No Psychological Hx Reported Smoking Status: Never smoker Past Alcohol Use History: None Reported Past Drug Use History: None Reported - Past Family History Mother Family Medical History: No Reported History Medications and Allergies Home Medications Medication Instructions Recorded Confirmed Type Jee-Iwgx-Aeuuo Acid 1 cap PO DAILY 12/02/15 04/26/22 History [-U Capsule] Ibuprofen [Motrin] 600 mg PO Q6HR PRN #30 tab 05/06/20 04/26/22 Rx Allergies Allergy/AdvReac Type Severity Reaction Status Date / Time No Known Allergies Allergy Verified 04/26/22 17:56 Exam Osteopathic Statement: *. No significant issues noted on an osteopathic structural exam other than those noted in the History and Physical/Consult. Vital Signs Temp Pulse Resp BP Pulse Ox 04/26/22 19:29 97.1 F L 96 16 127/79 04/26/22 18:24 97.5 F L 110 H 16 127/80 100 04/26/22 17:55 97.5 F L 110 H 16 127/80 100 Intake and Output 04/26/22 04/26/22 04/26/22 06:59 14:59 22:59 Other: Weight 89.811 kg Heart: Regular rate and rhythm Lungs: Clear to auscultation bilaterally Abdomen: Soft, nontender Extremities: Negative Homans sign Results Result Diagrams: 04/26/22 18:15 Abnormal Lab Results - Last 24 Hours (Table) 04/26/22 Range/Units 18:15 WBC 13.5 H (3.8-10.6) k/uL Hgb 10.9 L (11.4-16.0) gm/dL MCV 79.1 L (80.0-100.0) fL MCH 24.6 L (25.0-35.0) pg RDW 15.9 H (11.5-15.5) % Neutrophils # 10.1 H (1.3-7.7) k/uL Assessment and Plan (1) Normal labor Current Visit: No Status: Resolved Code(s): O80 - ENCOUNTER FOR FULL-TERM UNCOMPLICATED DELIVERY; Z37.9 - OUTCOME OF DELIVERY, UNSPECIFIED SNOMED Code(s): 52448704 Plan: 1. admit to [facility] 2. expectant managements 3. anticipate normal vaginal delivery
--- NOTE | 2022-04-26 19:44 | P.PROBDLV ---
Vaginal Delivery Note - . Vaginal Delivery Note: 37 year old presents at 38 weeks 5 days in labor. Her cervix is 8/90/-2. She is javi every 2-5 minutes. heart tones 135 with moderate variability and reactive.amniotomy performed at 1853. Clear fluid noted. Her cervix was completely dilated soon thereafter. She pushed, and delivered a viable female infant over intact perineum under epidural anesthesia at 191. Head delivered OA, anterior shoulder delivered gentle downward guidance for by posterior shoulder and rest of body. Nose and mouth bulb suctioned, cord clamped and cut, placed mother's abdomen. Apgars 9, 9, weight 7 lbs. 7 oz. For further spontaneously, intact with three-vessel cord at 191. Vagina, cervix, perineum inspected. No lacerations noted. Estimated blood loss 75 mL. Mother and baby in stable condition.
[2022-04-27] MEDS: SENNOSIDES-DOCUSATE SODIUM 1 EACH TAB PO SCH ×3 (00:34→21:05)
[2022-04-27] MEDS: LACTATED RINGERS 1,000 ML IV SCH ×2 (03:56→15:08)
[2022-04-27 04:52] LABS: Basophils % (A) 0 %; Eosinophils % (A) 0 %; HCT 30.8 % (34.0-46.0); HGB 9.7 gm/dL (11.4-16.0); Hypochromasia Marked; Lymphocytes # (A) 2.1 k/uL (1.0-4.8); Lymphocytes % (A) 14 %; MCH 25.3 pg (25.0-35.0); MCHC 31.4 g/dL (31.0-37.0); MCV 80.6 fL (80.0-100.0); Mean Platelet Volume 8.9; Monocytes # (A) 0.5 k/uL (0-1.0); Monocytes % (A) 3 %; Neutrophils # (A) 12.4 k/uL (1.3-7.7); Neutrophils % (A) 81 %; Platelet Count 230 k/uL (150-450); RBC 3.82 m/uL (3.80-5.40); RDW 15.2 % (11.5-15.5); WBC 15.3 k/uL (3.8-10.6)
--- NOTE | 2022-04-27 08:41 | P.PNOBGVD ---
Subjective - Subjective Principal diagnosis: Status post normal vaginal delivery day #1 Interval history: Patient seen and examined. Denies nausea, vomiting, chest pain, shortness of breath or calf pain. Patient reports: Reports appetite normal, Reports voiding normally, Reports pain well controlled, Reports ambulating normally [place]: doing well Objective - Latest Vital Signs Latest vital signs: Vital Signs Temp Pulse Resp BP Pulse Ox 04/27/22 04:29 97.7 F 64 16 114/79 98 04/27/22 00:00 98.1 F 93 16 118/74 100 04/26/22 21:29 81 16 122/74 04/26/22 20:59 78 16 121/77 04/26/22 20:28 77 16 125/62 04/26/22 20:14 75 16 141/70 04/26/22 19:59 83 16 125/73 04/26/22 19:42 99 16 135/81 04/26/22 19:29 97.1 F L 96 16 127/79 04/26/22 18:24 97.5 F L 110 H 16 127/80 100 04/26/22 17:55 97.5 F L 110 H 16 127/80 100 Intake and Output 04/26/22 04/27/22 04/27/22 22:59 06:59 14:59 Output Total 385 Balance -385 Output: Output, Quantitative 385 Blood Loss Other: # Voids 1 2 Weight 89.811 kg - Exam Lungs: bilateral: normal Chest: Normal S1, Normal S2 Extremities: Present: normal Abdomen: Present: normal appearance, soft Uterus: Present: normal, firm - Labs Labs: Abnormal Lab Results - Last 24 Hours (Table) 04/26/22 04/27/22 Range/Units 18:15 04:26 WBC 13.5 H 15.3 H (3.8-10.6) k/uL Hgb 10.9 L 9.7 L (11.4-16.0) gm/dL Hct 30.8 L (34.0-46.0) % MCV 79.1 L (80.0-100.0) fL MCH 24.6 L (25.0-35.0) pg RDW 15.9 H (11.5-15.5) % Neutrophils # 10.1 H 12.4 H (1.3-7.7) k/uL Assessment and Plan (1) Normal labor Current Visit: No Status: Resolved Code(s): O80 - ENCOUNTER FOR FULL-TERM UNCOMPLICATED DELIVERY; Z37.9 - OUTCOME OF DELIVERY, UNSPECIFIED SNOMED Code(s): 24770873 (2) Normal spontaneous vaginal delivery Current Visit: No Status: Acute Code(s): O80 - ENCOUNTER FOR FULL-TERM UNCOMPLICATED DELIVERY SNOMED Code(s): 64902303 Plan: 1. Continue care
[2022-04-28 08:01] VITALS: BP 117/74; PULSE 77; RESP 18; TEMP 97.6
[2022-04-28] MEDS: SENNOSIDES-DOCUSATE SODIUM 1 EACH TAB PO SCH (08:02)
--- NOTE | 2022-04-28 08:37 | P.DS ---
Providers Date of admission: 04/26/22 17:49 Expected date of discharge: 04/28/22 Attending physician: Tanna Franco Primary care physician: Stated None - Discharge Diagnosis(es) (1) Normal labor Current Visit: No Status: Resolved (2) Normal spontaneous vaginal delivery Current Visit: No Status: Acute Hospital Course: Patient presented in active labor. She underwent a normal vaginal delivery. course was uncomplicated. She denies nausea, vomiting, chest pain, shortness of breath or calf pain. Patient will be discharged home day #2 in stable condition to follow-up with me in 6 weeks. Plan - Discharge Summary New Discharge Prescriptions: New Ibuprofen [Motrin] 600 mg PO Q6HR PRN #30 tab PRN Reason: Mild Pain (Scale 1 To 3) No Action Cak-Kspv-Sizxs Acid [-U Capsule] 1 cap PO DAILY Ibuprofen [Motrin] 600 mg PO Q6HR PRN #30 tab PRN Reason: Mild Pain Or Fever >= 100.5 Discharge Medication List [id number] Acid [-U Capsule] 1 cap PO DAILY 12/02/15 [History] Ibuprofen [Motrin] 600 mg PO Q6HR PRN #30 tab 05/06/20 [Rx] Ibuprofen [Motrin] 600 mg PO Q6HR PRN #30 tab 04/28/22 [Rx] Follow up Appointment(s)/Referral(s): Tanna Franco DO [Doctor of Osteopathic Medicine] - 6 Weeks Discharge Disposition: HOME SELF-CARE
== END 2022-04-28 14:13 | disposition home or self-care (01) | DRG 807 ==
LOC: FBPOP 17:38 → 4FBP 17:49
PROVIDERS: ADMIT Obstetrics & Gynecology; ATTEND Obstetrics & Gynecology
PROC: 10E0XZZ Delivery of Products of Conception, External Approach (ICD-10-PCS; principal; 2022-04-26)
PROC: 4A0HXCZ Measurement of Products of Conception, Cardiac Rate, External Approach (ICD-10-PCS; 2022-04-26)
PROC: 10907ZC Drainage of Amniotic Fluid, Therapeutic from Products of Conception, Via Natural or Artificial Opening (ICD-10-PCS; 2022-04-26)
DX: O80 Encounter for full-term uncomplicated delivery (principal); Z37.0 Single live birth; Z3A.38 38 weeks gestation of pregnancy; Z90.49 Acquired absence of other specified parts of digestive tract
CPT/HCPCS: 83036; 85025; 86850; 86900; 86901